=== PATIENT | female | born 2000 | race Caucasian/White ===

== ENCOUNTER 2021-01-31 23:31 | Emergency (ER) | payer BC ==
--- NOTE | 2021-02-01 00:14 | EDM.PDOCBH ---
ED HPI GENERAL MEDICAL PROBLEM - General Chief Complaint: Behavioral/Psych Stated Complaint: SUICIDAL Time Seen by Provider: 01/31/21 23:43 Source of Information: Reports: Patient, Police History Limitations: Reports: No Limitations - History of Present Illness INITIAL COMMENTS - FREE TEXT/NARRATIVE: The patient was brought in by the [facility]'s department for possible suicidal ideation. [place] outside of town and the deputies were concerned she may jump off of the bridge. She says that she had a tough couple of days and she was just sitting in a quite spot to think. She has never tried to kill herself in the past. She did do self harm by cutting in the past but she has not done that in awhile. She is currently seeing a therapist at [facility] named Ana Maria. She did have suicidal thoughts in the past. She has been depressed lately and is not on any medications. She does not want to go on any medications. She has not been drinking or doing any drugs. She has a loving family and boyfriend and she her roommate is a good friend. Onset: Gradual Duration: Minutes: Improves with: Reports: None Worsens with: Reports: None Associated Symptoms: Reports: No Other Symptoms Past Medical History Psychiatric History: Reports: Depression, Suicidal Ideation - Past Surgical History HEENT Surgical History: Reports: Oral Surgery Other HEENT Surgeries/Procedures: wisdom tooth extraction Social & Family History - Tobacco Use Tobacco Use Status *Q: Current Every Day Tobacco User Years of Tobacco use: 7 Packs/Tins Daily: 1 - Recreational Drug Use Recreational Drug Use: Yes Drug Use in Last 12 Months: Yes Recreational Drug Type: Reports: Marijuana/Hashish Recreational Drug Use Frequency: Not Used In Over 6 Months ED ROS GENERAL - Review of Systems Review Of Systems: See Below Constitutional: Reports: No Symptoms HEENT: Reports: No Symptoms Respiratory: Reports: No Symptoms Cardiovascular: Reports: No Symptoms Endocrine: Reports: No Symptoms GI/Abdominal: Reports: No Symptoms : Reports: No Symptoms Musculoskeletal: Reports: No Symptoms Skin: Reports: No Symptoms ED EXAM, BEHAVIORAL HEALTH - Physical Exam Exam: See Below Exam Limited By: No Limitations General Appearance: Alert, No Apparent Distress Ears: Normal External Exam Nose: Normal Inspection Head: Atraumatic, Normocephalic Neck: Normal Inspection Respiratory/Chest: No Respiratory Distress, Lungs Clear, Normal Breath Sounds Cardiovascular: Regular Rate, Rhythm, No Edema, No Murmur GI/Abdominal: Soft, Non-Tender, No Organomegaly, No Mass Back Exam: Normal Inspection Extremities: Normal Inspection COURSE, BEHAVIORAL HEALTH COMP - Course Vital Signs: Last Vital Signs Temp 97.2 F 01/31/21 23:48 Pulse 91 01/31/21 23:48 Resp 15 01/31/21 23:48 BP 122/86 01/31/21 23:48 Pulse Ox 100 01/31/21 23:48 Re-Assessment/Re-Exam: I do not feel she is a threat to herself and she is not actively suicidal. Her roommate is here and she will be staying with her. She will be seeing Ana Maria this week. Departure - Departure Time of Disposition: 00:20 Disposition: Home, Self-Care 01 Condition: Good Clinical Impression: Depressive disorder - Discharge Information *PRESCRIPTION DRUG MONITORING PROGRAM REVIEWED*: Not Applicable *COPY OF PRESCRIPTION DRUG MONITORING REPORT IN PATIENT [place]: Not Applicable Referrals: Christina Quijano, [facility] [Primary Care Provider] - 1 Week Additional Instructions: Follow up with Ana Maria at [facility] and with Christina at the clinic. Please return if you are worse. Sepsis Event Note (ED) - Evaluation Sepsis Screening Result: No Definite Risk - Focused Exam Vital Signs: Vital Signs Temp Pulse Resp BP Pulse Ox 01/31/21 23:48 97.2 F 91 15 122/86 100
== END 2021-02-01 00:23 | disposition home or self-care (01) ==
LOC: JD.ED 23:31
DX: F32.9 Major depressive disorder, single episode, unspecified (principal); Z72.0 Tobacco use
CPT/HCPCS: 99283; 99284